=== PATIENT | male | born 1945 | race Caucasian/White ===

== ENCOUNTER 2017-01-19 07:19 | Day surgery (SDC) | payer OTHER ==
[2017-01-12 13:14] LABS: BASOPHILS 0.8 %; BASOPHILS ABSOLUTE 0.09 10/3/uL (0.0-0.16); EOSINOPHILS ABSOLUTE 0.56 10/3/uL (0.0-0.53); HEMOGLOBIN 15.1 g/dL (13.6-17.8); IMMATURE GRANULOCYTES 0.2 %; IMMATURE GRANULOCYTES ABSOLUTE 0.02 10/3/uL (0.0-0.11); LYMPHOCYTES 29.1 %; LYMPHOCYTES ABSOLUTE 3.27 10/3/uL (0.67-4.30); MEAN CORPUS HGB CONC 32.5 g/dL (32.0-36.0); MEAN CORPUSCULAR HEMOGLOB 29.2 pg (26.0-34.0); MONOCYTES 8.6 %; MONOCYTES ABSOLUTE 0.96 10/3/uL (0.21-1.20); NEUTROPHILS 56.3 %; NEUTROPHILS ABSOLUTE 6.32 10/3/uL (2.02-8.40); PLATELET COUNT 242 10/3/uL (150-400); RBC DISTRIBUTION WIDTH 14.1 % (12.0-16.0); RED CELL COUNT 5.18 10/6/uL (4.7-6.1)
[2017-01-12 13:17] LABS: HEMATOCRIT 46.5 % (40.0-51.0); MANUAL DIFF NO %; MEAN CORPUSCULAR VOLUME 89.8 fL (80-100); WHITE BLOOD CELLS 11.2 10/3/uL (4.5-10.5)
[2017-01-12 13:21] LABS: INTERNATIONAL NORMAL RATI 1.1 UNITS (-); PARTIAL THROMBO TIME 35.9 SEC (22.5-37.2); PROTIME (NOT ORD) 13.9 SEC (12.0-14.5)
[2017-01-12 13:26] LABS: BUN (BLOOD UREA NITROGEN) 14 MG/DL (6-23); CHLORIDE, SERUM 108 MMOL/L (96-112); CO2 (CARBON DIOXIDE) 31 MMOL/L (24-34); CREATININE 1.06 MG/DL (0.70-1.30); GFR AFRICAN AMERICAN 83 ML/MIN (>=60); GFR NON AFRICAN AMERICAN 71 ML/MIN (>=60); GLUCOSE, SERUM 82 MG/DL (60-99); SODIUM, SERUM 143 MMOL/L (135-148)
[2017-01-12 13:28] LABS: CALCIUM, SERUM 9.4 MG/DL (8.5-10.4)
--- NOTE | ~2017-01-19 | OP ---
Record Of Operation [facility] [address] [place]. [address] NAME: HARMONY MENDOSA : 49 STATUS : [facility]#: [id number] AGE: 71 ADM/REG DATE : 01/19/17 MR#: [id number] REPORT SERV DATE: 01/24/17 DICTATED BY: GERALD HINTON DATE: 01/23/17 REPORT STATUS : Draft TRANSCRIBED BY: SAUMYA DATE: 01/23/17 DATE OF PROCEDURE: 01/19/2017 PREOPERATIVE DIAGNOSIS: Sialolithiasis, left submandibular gland. POSTOPERATIVE DIAGNOSIS: Sialolithiasis, left submandibular gland. PROCEDURE PERFORMED: Left submandibular gland excision and left facial nerve monitor. INDICATIONS AND SIGNIFICANT HISTORY: The patient is a 71-year-old male with significant history of significant recurrent swelling in the left submandibular gland. He had a hard mass palpated in what appeared to be the hilum of the gland and was significant for stone. The patient did respond to antibiotics, but symptoms returned as the firm area did not resolve or pass. At this point, the patient was felt to benefit from left submandibular gland excision. OPERATIVE PROCEDURE AND FINDINGS: After informed consent was obtained, the patient was brought to the operating room, placed on the operating room table in supine position, at which point, general endotracheal anesthesia was induced by Anesthesia Service through an orotracheal route. The left orbicularis maxwell and orbicularis oculi muscles were set up to monitor through the facial nerve monitor and the skin of the neck was prepped and draped in a standard sterile fashion. 15 blade scalpel was used to make a skin incision approximately two fingerbreadths above and below the angle of the mandible. Subplatysmal flaps were elevated. The inferior aspect of the submandibular gland was encountered. Through a dense inflammatory response and adhesions, the inferior and deep portion of the gland followed by the lateral and superior portions of the gland were all cleared. The posterior aspect of the gland, however, was markedly adherent and appeared to have this firm mass or stone within it. The facial artery was divided with Harmonic Scalpel followed division of the duct with Harmonic scalpel. Eventually, through a sharp and blunt dissection, the left submandibular gland was finally removed. There were no rents or tears in the floor of mouth mucosa. No mouth connections to the wound. Wound was then irrigated and was closed with few layers of deep Vicryl suture followed by closure of the skin with Prolene. He was turned back towards anesthesia, aroused from anesthesia, and taken to the postanesthesia care unit in satisfactory condition. COMPLICATIONS: None. ESTIMATED BLOOD LOSS: Less than 30 mL. IV FLUIDS: Per anesthesia. DLA/SAUMYA Gerald Thomas Record Of Operation [facility] [id number] [place]. [address] NAME: HARMONY MENDOSA : 49 STATUS : [facility]#: [id number] AGE: 71 ADM/REG DATE : 01/19/17 MR#: [id number] REPORT SERV DATE: 01/24/17 DICTATED BY: GERALD HINTON. DATE: 01/23/17 REPORT STATUS : Draft TRANSCRIBED BY: SAUMYA DATE: 01/23/17 Garfield Hinton / [id number] CC: Garfield Cassidy M.D.
[~2017-01-19 07:19] MED LIST: DIL2TAB PO; HYDROCHLOROT25 MG PO; K-TABS10 MEQ PO; LORTAB 5 PO; MELATONIN5 M1 PO; MULTI-VIT HP OR; V5 PO; Z100 PO; ZOCOR20 PO; [UNRECOGNIZED DRUG - OTHER] PO
== END 2017-01-19 18:56 | disposition home or self-care (01) ==
LOC: SDC 07:19
PROVIDERS: Otolaryngology
PROC: 0NBV0ZZ Excision of Left Mandible, Open Approach (ICD-10-PCS; principal; 2017-01-19 09:00)
DX: K11.23 Chronic sialoadenitis (principal); I10 Essential (primary) hypertension; Z86.11 Personal history of tuberculosis; Z87.442 Personal history of urinary calculi; Z98.890 Other specified postprocedural states; Z88.2 Allergy status to sulfonamides
CPT/HCPCS: 80048; 85025; 85610; 85730; 88307; 93005; J0330; J0690; J2250; J2370; J2405; J3010